=== PATIENT | male | born 1995 | race Caucasian/White ===

== ENCOUNTER 2023-08-31 08:18 | Outpatient (CLI) | payer BC, SELFPAY ==
--- NOTE | ~2023-08-31 | CT_ITS ---
EXAMINATION: CT soft tissue neck chest w DATE: 08/31/2023 09:20 INDICATION: Enlarged lymph node of neck. TECHNIQUE: Computed tomography (CT) of the neck and chest was performed with 75 mL Omnipaque-350 intr avenous contrast. Automated exposure control and iterative reconstruction technique were employed. Th e dose-length product was 1113.54 mGy-cm. COMPARISON: None FINDINGS: CT NECK: There are enlarged bilateral high internal jugular, spinal accessory, and submandibular lymp h nodes. For example, a right spinal accessory chain node measures 17 x 14 mm. The cervical carotid a rteries are normal. There is mild cervical spondylosis. CT CHEST: The lungs demonstrate mild atelectasis. No pleural effusion. The heart size is normal. No p ericardial effusion. There is mild splenomegaly. There is mild thoracic spondylosis. IMPRESSION: 1. Mild cervical lymphadenopathy. The differential diagnosis includes reactive lymphadenopathy and ly mphoma. Consider ultrasound-guided core needle biopsy. 2. Mild splenomegaly. Reviewed, dictated and finalized at location A. IMPRESSION: 1. Mild cervical lymphadenopathy. The differential diagnosis includes reactive lymphadenopathy and lymphoma. Consider ultrasound-guided core needle biopsy. 2. Mild splenomegaly.
[2023-08-31 08:47] LABS: Estimated Glomerular Filt Rate > 60
== END 2023-08-31 08:19 | disposition home or self-care (01) ==
LOC: CHSIMG 08:24
DX: R59.0 Localized enlarged lymph nodes (principal); R16.1 Splenomegaly, not elsewhere classified
CPT/HCPCS: 70491; 71260; Q9967